=== PATIENT | male | born 1930 | race Caucasian/White ===

== ENCOUNTER 2017-04-26 00:44 | Inpatient (IN) | payer MEDICARE, BC ==
[~2017-04-26] VITALS: Ht 182.9 cm; Wt 95.3 kg
[~2017-04-26 00:44] MED LIST: ASPIR 8181 MG PO; BACTRIM DS TAB1 EACH PO; CENTRUM SILVER1 EAC4 PO; FLEXERIL PO; HYDROCODONE-AP1 EAC6 PO; IBUPROFEN 800800 M1 PO; KEFLEX500 MG PO; LEVOTHYROXIN0.125 M1 PO; LOPRESSOR25 PO; LOVASTATIN 20 M20 MG PO; NATURAL LUTEIN20 MG PO; OS-CAL 500+D31 EACH PO; VITAMINC500 PO; ZINC CHELATE50 MG PO
[2017-04-26 01:01] VITALS: BP 131/89
[2017-04-26 01:27] LABS: ABSOLUTE EOSINOPHILS 0.1 thou/uL (0.0-0.7); ABSOLUTE LYMPHOCYTES 1.3 thou/uL (0.8-5.3); ABSOLUTE MONOCYTES 0.8 thou/uL (0.0-1.2); ABSOLUTE NEUTROPHILS 7.7 thou/uL (1.6-8.1); BASOPHILS 0.4 %; EOSINOPHILS 0.5 %; HEMATOCRIT 38.2 % (42.0-52.0); HEMOGLOBIN 12.8 gm/dL (14.0-18.0); MCH 30.2 pg (26.0-34.0); MCHC 33.6 g/dL (28.0-37.0); MCV 89.8 fL (80.0-100.0); MONOCYTES 8.2 %; MPV 6.9 fl. (7.2-11.1); NUCLEATED RBCS 0 /100WBC; PLATELET COUNT* 200 thou/uL (150-400); POLYS 77.9 %; RBC 4.26 mil/uL (4.50-6.00); RDW-CV 14.1 % (10.5-14.5); WBC 9.9 thou/uL (4.0-11.0)
[2017-04-26 01:31] LABS: ANION GAP 6 mmol/L (7-16); BUN 24 mg/dL (7-18); CALCIUM 8.4 mg/dL (8.5-10.1); CHLORIDE 100 mmol/L (98-107); CO2 30 mmol/L (21-32); CREATININE 1.3 mg/dL (0.6-1.3); GLUCOSE 125 mg/dL (70-99); POTASSIUM 4.2 mmol/L (3.5-5.1); SODIUM 136 mmol/L (136-145)
[2017-04-26 01:38] LABS: ALBUMIN 3.3 g/dL (3.4-5.0); ALKALINE PHOSPHATASE 91 U/L (46-116); LIPASE 404 U/L (73-393); SGOT 625 U/L (15-37); SGPT 402 U/L (30-65); TOTAL PROTEIN 6.7 g/dL (6.4-8.2); TROPONIN-I LEVEL <0.06 ng/mL (<0.06)
[2017-04-26 07:38] VITALS: BP 139/56
[2017-04-26 08:35] VITALS: BP 151/69
--- NOTE | 2017-04-26 10:48 | EKG ---
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 : 1930 Requested By: Layo Senior Order Number: [id number] MD: Adrian Sahu Measurements Intervals [place] Rate: 65 P: 41 FL: 215 QRS: 5 QRSD: 119 T: 74 QT: 437 QTc: 455 Interpretive Statements Sinus rhythm Borderline prolonged FL interval nonspecific intraventricular conduction defect Compared to ECG 08/15/2015 17:11:31 no change Electronically Signed On 04-26-2017 10:48:00 MANAGER SUPPORT by Adrian Sahu [email or web address] <ELECTRONICALLY SIGNED> By: Adrian Sahu MD, [facility] 04/26/17 1048 9 9 Adrian Sahu MD, [facility] /EPI
[2017-04-26 12:29] LABS: DIRECT BILIRUBIN 1.2 mg/dL (<0.1-0.3)
[2017-04-26 16:30] VITALS: BP 147/72
[2017-04-26 22:00] VITALS: BP 127/67
[2017-04-27 04:53] LABS: ALBUMIN 2.7 g/dL (3.4-5.0); CALCIUM 7.8 mg/dL (8.5-10.1); CREATININE 1.3 mg/dL (0.6-1.3); MAGNESIUM 2.4 mg/dL (1.8-2.4); POTASSIUM 3.9 mmol/L (3.5-5.1); TOTAL BILIRUBIN 4.8 mg/dL (<0.1-1.0); TOTAL PROTEIN 5.9 g/dL (6.4-8.2)
[2017-04-27 04:55] LABS: HEMATOCRIT 35.9 % (42.0-52.0); HEMOGLOBIN 11.8 gm/dL (14.0-18.0); MCH 29.9 pg (26.0-34.0); MCV 90.6 fL (80.0-100.0); MPV 7.7 fl. (7.2-11.1); RBC 3.97 mil/uL (4.50-6.00); RDW-CV 14.2 % (10.5-14.5); WBC 11.2 thou/uL (4.0-11.0)
[2017-04-27 08:00] VITALS: BP 147/55
[2017-04-27 16:08] VITALS: BP 131/57
[2017-04-27 19:43] VITALS: BP 163/71
[2017-04-27 23:57] VITALS: BP 137/59
[2017-04-28 04:20] LABS: ABSOLUTE EOSINOPHILS 0.3 thou/uL (0.0-0.7); ABSOLUTE LYMPHOCYTES 1.1 thou/uL (0.8-5.3); ABSOLUTE MONOCYTES 0.7 thou/uL (0.0-1.2); ABSOLUTE NEUTROPHILS 4.8 thou/uL (1.6-8.1); BASOPHILS 0.6 %; EOSINOPHILS 3.9 %; HEMATOCRIT 34.5 % (42.0-52.0); HEMOGLOBIN 11.5 gm/dL (14.0-18.0); LYMPHOCYTES 15.4 %; MCH 30.4 pg (26.0-34.0); MCHC 33.3 g/dL (28.0-37.0); MCV 91.3 fL (80.0-100.0); MONOCYTES 10.3 %; MPV 7.3 fl. (7.2-11.1); NUCLEATED RBCS 0 /100WBC; PLATELET COUNT* 157 thou/uL (150-400); POLYS 69.8 %; RBC 3.78 mil/uL (4.50-6.00); RDW-CV 14.5 % (10.5-14.5); WBC 6.9 thou/uL (4.0-11.0)
[2017-04-28 04:34] LABS: ALBUMIN 2.6 g/dL (3.4-5.0); CALCIUM 7.8 mg/dL (8.5-10.1); CREATININE 1.1 mg/dL (0.6-1.3); POTASSIUM 3.8 mmol/L (3.5-5.1); TOTAL BILIRUBIN 1.5 mg/dL (<0.1-1.0); TOTAL PROTEIN 5.8 g/dL (6.4-8.2)
[2017-04-28 08:00] VITALS: BP 169/62
[2017-04-28 08:10] VITALS: BP 169/92
[2017-04-28 09:23] VITALS: BP 137/59
[2017-04-28 13:50] VITALS: BP 168/74
--- NOTE | 2017-04-28 14:54 | OP ---
[facility] [address] [place] [address] OPERATIVE REPORT Name: FADIACHAYDIGNA Liane Room: [address] IN .R.#: [id number] Admission: 04/26/17 Attend Phys: Kevin Benton Discharge: Date of : 32 Report #: [id number] THIS REPORT FOR: //name// CC: SUDARSHAN Powell DICTATED BY: Tonia Boudreaux DO DATE OF SERVICE: 04/28/2017 PREOPERATIVE DIAGNOSIS: Acute cholecystitis with cholelithiasis. POSTOPERATIVE DIAGNOSIS: Acute cholecystitis with cholelithiasis. SURGEON: Tonia Boudreaux, PGY-5. SUPERVISING SURGEON: Tiago Salguero DO. LEAFLET OR NEWSPAPER DELIVERER: Renny , MS3. PROCEDURE: Laparoscopic cholecystectomy with intraoperative cholangiogram. ANESTHESIA: General endotracheal. ESTIMATED BLOOD LOSS: 30 mL. SPECIMENS: Gallbladder. COMPLICATIONS: None. DISPOSITION: PACU to floor. OPERATIVE DETAILS: After obtaining proper informed consent, the patient was brought to the operating room and laid supine on the operating table. He was sedated and intubated under the benefit of general anesthesia. He had been receiving antibiotics on the floor. Abdomen was then prepped and draped in the usual sterile fashion and timeout was performed. Supraumbilical incision was made and dissection of subcutaneous tissue was carried out to the level of the fascia. A nicking incision was made in the fascia with the use of cautery and this was grasped and elevated with 2 Saw clamps. The fascial incision was extended slightly and peritoneum was entered bluntly with the use of a hemostat. A finger was placed in the abdomen and peritoneum was swept and found to be free of adhesions. Two utstvr-we-ehzgg 0 Vicryl sutures were then placed in the fascia as retention sutures. A Yareli trocar was placed in the abdomen and abdomen was insufflated. An 11 mm trocar was placed in the [place] [address] OPERATIVE REPORT Name: DIGNA TOVAR Room: [address] IN [facility].#: [id number] Admission: 04/26/17 Attend Phys: Kevin Benton Discharge: Date of : 32 Report #: [id number] under direct visualization followed by two 5 mm trocars in the right lateral abdomen. Gallbladder was then grasped and elevated cephalad over the liver. Charity pouch was grasped and peritoneum overlying Charity pouch was incised with the use of cautery. Gentle dissection was then carried out to dissect free the cystic duct and cystic artery. A 14-gauge Angiocath was then placed through the abdominal wall above the gallbladder. Endoclip was placed distally on the cystic duct and a nicking incision was made with endoscopic scissors. TauT catheter was then advanced into the duct and secured with a clip. This flushed easily and the patient was then placed back fully supine and C-arm was brought in. Cholangiogram was performed with no evidence of stone in the common bile duct. C-arm was then brought out. The patient again was placed head up and rolled slightly to the left. The securing clip was removed and TauT catheter was removed. Three clips were then placed proximally on the cystic duct and 2 proximally on the cystic artery and one distally on the cystic artery. Cystic duct and cystic artery were then ligated with endoscopic scissors. Gallbladder was dissected free of the liver bed with the use of cautery. There were some very small posterior vessels, which were controlled with clips. Once the gallbladder was completely dissected free, it was placed in an EndoCatch bag. Gallbladder fossa was irrigated and suctioned free with the use of a suction grizzlyman. Hemostasis of the liver bed was assured with cautery and Surgicel. Irrigation fluid was completely suctioned free from Morison pouch. Trocars were removed under direct visualization with no evidence of bleeding. Gallbladder was brought out through the supraumbilical incision. There were multiple large stones that were sent to Pathology for further evaluation. Two additional pmtaam-ec-uawct 0 Vicryl sutures were placed in the fascia of the supraumbilical incision with good approximation. Local infiltration of 0.5% Marcaine was injected in the fascia as well as around all incisions, totalling 30 mL. Skin was closed with 4-0 Monocryl, followed by Mastisol, Steri-Strips, sterile Tegaderm dressings and gauze pressure dressing. All counts were correct at the end of the case. Drapes were removed and the patient was awoken and extubated and brought to PACU in good condition for further recovery. Dr. Tiago Salguero was present and scrubbed for the entirety of the procedure. <ELECTRONICALLY SIGNED> By: Tiago Salguero DO 04/28/17 1454 1218 [id number] Salguero DO /nt
[2017-04-28 21:05] VITALS: BP 203/88
[2017-04-29] VITALS (7 sets, daily range): BP systolic 150–179; BP diastolic 58–83
[2017-04-29 04:03] LABS: HEMATOCRIT 35.4 % (42.0-52.0); MCH 30.6 pg (26.0-34.0); MCV 90.1 fL (80.0-100.0); MPV 7.4 fl. (7.2-11.1); RBC 3.93 mil/uL (4.50-6.00); WBC 10.9 thou/uL (4.0-11.0)
[2017-04-29 04:21] LABS: ALBUMIN 2.5 g/dL (3.4-5.0); CALCIUM 7.9 mg/dL (8.5-10.1); MAGNESIUM 2.1 mg/dL (1.8-2.4); POTASSIUM 3.9 mmol/L (3.5-5.1); TOTAL BILIRUBIN 1.1 mg/dL (<0.1-1.0); TOTAL PROTEIN 5.9 g/dL (6.4-8.2)
[2017-04-29] MEDS ORDERED: COLACE100 MG PO (07:45)
[2017-04-29] MEDS ORDERED: SYNTHROID125 MCG PO (14:20)
--- NOTE | 2017-04-29 17:17 | CON ---
[address] [address] CONSULTATION Name: DIGNA TOVAR Room: [address] IN .R.#: [id number] Admission: 04/26/17 Attend Phys: Kevin Benton Discharge: 04/29/17 Date of : 32 Report #: [id number] THIS REPORT FOR: //name// CC: SUDARSHAN Powell DATE OF SERVICE: 04/26/2017 HISTORY OF PRESENT ILLNESS: The patient is an 87-year-old single white male who I was asked to see in the hospital today because of his history of coronary artery disease. Unfortunately, no old records are available. The patient has never been admitted here to [place]. He states that he presented in 2011, with shortness of breath. He was found to have evidence of aortic stenosis. In 2011, he underwent 2-vessel bypass surgery using left saphenous vein graft and aortic valve replacement using a tissue valve at [facility] in [place], [place]. He has apparently done well since his surgery. However, he did develop chronic swelling of the left leg following stripping of the left saphenous vein. He does see a lab courier every spring. He does exercise on a stationary bicycle for 30 minutes a day. He has a home both in [place], [place] and in [place]. He states that he was doing well until yesterday afternoon, he developed a discomfort in his epigastric area. He denied any vomiting, radiation of the pain, shortness of breath, or diaphoresis. Denied the pain radiating down his arms. He has had no recent fever or cough. Denied trauma to the area. He has had no diarrhea. He finally brought himself by car to the emergency room last night here at [place]. He underwent an evaluation that included CT scan of the abdomen and pelvis. This revealed distended gallbladder, small fluid. He was felt to be having cholecystitis. He was admitted to a monitored bed. I was asked to see him for possible preop evaluation. He denies any recent chest pain. He does get short of breath if he over exerts himself. He has had no palpitations or syncope. PAST MEDICAL HISTORY: Significant for previous hip surgery, Cataract extraction. 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 He has a history of hyperlipidemia, but no history of hypertension or diabetes. MEDICATIONS: Consists of Synthroid, metoprolol, lovastatin, and 81 mg of aspirin a day. ALLERGIES: He has no known drug allergies. FAMILY HISTORY: His mother had an irregular heartbeat. SOCIAL HISTORY: The patient is single, he has never been , he has no children. He is retired from the government. As mentioned, he has a house both in [place] and here in [place]. The patient does not drive, so he requires rides from a friend whenever necessary. He quit smoking years ago[place] [address] CONSULTATION Name: DIGNA TOVAR [address]: [address] [id number] Admission: 04/26/17 Attend Phys: Kevin Benton Discharge: 04/29/17 Date of : 32 Report #: [id number]. REVIEW OF SYSTEMS: He has had no history of stroke, asthma, peptic ulcer disease, liver disease, kidney disease, or psychiatric illness. He does wear glasses. No chronic skin condition. PHYSICAL EXAMINATION: GENERAL: Revealed an elderly male, lying in bed, he appeared in no acute distress. VITAL SIGNS: He had a blood pressure of 140/60, pulse 60, and he is afebrile. HEENT: He is anicteric. Conjunctivae are pink. Mucous membranes are moist. NECK: Veins nondistended. No carotid bruits. Neck was supple. CHEST: Clear to auscultation. HEART: Regular rate and rhythm, grade 3 late peaking systolic ejection murmur along the left sternal border. ABDOMEN: Soft. EXTREMITIES: Had 1+ edema in left lower extremity. Dorsalis pedis pulse 1+ bilaterally. SKIN: Cool and dry. NEUROLOGIC: Nonfocal. His ECG showed a sinus rhythm with nonspecific intraventricular conduction defect. His lab work done in the emergency room, he had a sodium of 136, creatinine 1.3, glucose 125, SGOT 625, lipase 404, bilirubin of 2, SGPT 402. Troponin 0.06. White blood cell count 9.9, hemoglobin 12.8. IMPRESSION AND RECOMMENDATIONS: 1. Coronary artery disease. Previous bypass surgery. No recent angina. I would continue aspirin 81 mg a day. 2. Status post aortic valve replacement using tissue valve. Valve appears to be functioning normally. I will attempt to obtain the records from his lab courier in [place], [place]. 3. Hyperlipidemia. The patient is on a statin drug. 4. Previous removal of a melanoma. 5. Elevated liver function studies. 6. Epigastric pain. Possible cholecystitis. Await surgical consultation. If required, the patient appears to have no cardiac contraindication to surgery. I believe his risk for cardiac complications with the surgery is low at this time. <ELECTRONICALLY SIGNED> By: Adrian Sahu MD, [facility] 04/29/17 1717 0926 1538Dales Sahu MD, SHANTANU /nt
--- NOTE | 2017-04-30 12:29 | S ---
[address] [address] SURGICAL PATH RPT PROCEDURE Name: DIGNA TOVAR Room: [address] IN [facility].#: [id number] Admission: 04/26/17 Date of : 32 Discharge: 04/29/17 Report #: [id number] Path Case #: [id number] PATHOLOGY REPORT COLLECTION DATE: 04/28/2017 RECEIVED DATE: 04/29/2017 SUBMITTING PHYS: Dr. Tiago Salguero OTHER PHYS: Dr. 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 (JENNIFER:r; 04/30/2017) PATHOLOGIST: Pieter Jacob M.D. REPORT ELECTRONICALLY SIGNED BY: Pieter Jacob M.D. DATE/TIME: 04/30/2017 12:28 * * * * * * * * * * * * GROSS PATHOLOGY: Received in formalin labeled "Digna Tovar, gallbladder with contents," is a 9.1 x 3.3 x 1.8 cm, previously opened gallbladder with cyr, smooth, and dusky serosal surfaces. The gallbladder reveals cyr-brown, velvety, and focally denuded mucosa and an average wall thickness of 0.3 cm. Multiple, smooth and multifaceted calculi are present. Two possible lymph nodes are identified adjacent the cystic duct. [employer] sections from the body and fundus are submitted along with the proximal margin in cassettes A1-A2. (SDY; 04/29/2017) CLINICAL HISTORY: Cholecystitis INITIAL CPT CODE(S): A; 60377 Professional services performed by [facility] at [facility], [facility] [address], [place] [address]. Technical services performed by [facility] at [address] [place] [address], [facility] [address] [address]. [place] [address] SURGICAL PATH RPT PROCEDURE Name: DIGNA TOVAR Room: [address] IN ..#: [id number] Admission: 04/26/17 Date of : 32 Discharge: 04/29/17 Report #: [id number] Path Case #: [id number] [facility] [address] [place] [id number] PHONE: [phone] DIRECTOR: Vazquez Carranza M.D. * * * END OF REPORT * * *
--- NOTE | 2017-05-08 17:47 | CON ---
[facility] [address] [place] [address] CONSULTATION Name: FADIACHAYDIGNA Liane Room: [address] IN [facility]#: [id number] Admission: 04/26/17 Attend Phys: Kevin Benton Discharge: 04/29/17 Date of : 32 Report #: [id number] THIS REPORT FOR: //name// CC: SUDARSHAN Powell DICTATED BY: Nae PERRYP DATE OF SERVICE: 04/26/2017 PRIMARY CARE PHYSICIAN: None noted. The patient cannot remember his name. Please note at the time of this dictation, the patient was seen and physically examined by myself. REASON FOR CONSULTATION: Epigastric pain and elevated LFTs. HISTORY OF PRESENT ILLNESS: This is an 87-year-old male presenting to the Emergency Room after having epigastric pain which started yesterday late in the afternoon. He states he felt a little nauseous, but no vomiting and he did not really associate it with eating. The patient states that his bowels move daily, soft and formed with no issues of any bright red blood or melena. He has had a history of having colonoscopies done at in [place]. Otherwise, the patient is a fairly poor historian at this time. ALLERGIES: No known drug allergies. MEDICATIONS: From home, see MAR. PAST MEDICAL HISTORY: Prostate cancer in 2004. He has got a history of heart disease. PAST SURGICAL HISTORY: CABG and total hip replacement. FAMILY HISTORY: Negative for any GI or female cancers. SOCIAL HISTORY: Alcohol socially on occasion. Denies any tobacco or illegal drug use. REVIEW OF SYSTEMS: Twelve-point review of systems is essentially negative except what is mentioned in the HPI. PHYSICAL EXAMINATION: VITAL SIGNS: Temperature 36.8, pulse 64, respirations 16, blood pressure 151/69. HEART: [place] [address] CONSULTATION Name: DIGNA TOVAR Liane Room: [address]#: [id number] Admission: 04/26/17 Attend Phys: Kevin Benton Discharge: 04/29/17 Date of : 32 Report #: [id number] LUNGS: Clear. ABDOMEN: Soft, positive bowel sounds in all 4 quadrants with tenderness noted in the epigastric area. DIAGNOSTIC STUDIES: CT showed gallbladder distention. Ultrasound of the abdomen showed his CBD to be 5.3-6.2 mm, fatty liver, showed gallbladder wall thickening, positive for gallstones. LABORATORY DATA: Hemoglobin is 12.8, hematocrit 38.2, white count is 9.9, platelets 200. Sodium 136, potassium 4.2, chloride 100, CO2 of 30, BUN is 24, creatinine is 1.3, GFR is 52 and glucose is 125, total bilirubin is 2, alkaline phosphatase 91, ALT 402, AST is 625. Lipase is 404. IMPRESSION: 1. Elevated LFTs. 2. Abdominal pain, epigastric. 3. Cholelithiasis noted. PLAN: 1. MRCP today. 2. Depending on the above results, we will make further recommendations at that time. 3. CMP in the a.m. Thank you for allowing us to participate in this patient's care. Please do not hesitate to call with any questions in regard to this consult. <ELECTRONICALLY SIGNED> By: Jonel Gtz MD 05/08/17 1747 1335 [id number] Gtz MD /nt
--- NOTE | 2017-05-08 17:47 | CON ---
[address] [address] CONSULTATION Name: FADIACHAYDIGNA Liane Room: [address] IN M.R.#: [id number] Admission: 04/26/17 Attend Phys: Kevin Benton Discharge: 04/29/17 Date of : 32 Report #: [id number] THIS REPORT FOR: //name// CC: SUDARSHAN Powell DATE OF SERVICE: 04/26/2017 ADDENDUM: CONSULT #[id number]. The patient with an epigastric pain who has elevated liver enzymes and bilirubin of 2. The ultrasound and CT suggestive of thickening of the gallbladder wall and mild pericholecystic fluid noted in CT. There are also several stones in the gallbladder. The intra and extrahepatic ducts appeared normal in size. We will order MRCP. If this is negative, the patient will be evaluated by Surgery for possible laparoscopic cholecystectomy. <ELECTRONICALLY SIGNED> By: Jonel Gtz MD 05/08/17 1747 1417 0147Jonel Gtz MD /nt
== END 2017-04-29 15:00 | disposition home or self-care (01) | DRG 418 ==
LOC: M.ERS 00:44 → M.TBA-ER 03:34 → M.ORTHSURG 08:28
PROVIDERS: Emergency Medicine Emergency Medical Services; Internal Medicine; Surgery; ADMIT Internal Medicine
PROC: 0FT44ZZ Resection of Gallbladder, Percutaneous Endoscopic Approach (ICD-10-PCS; principal; 2017-04-28)
PROC: BF121ZZ Fluoroscopy of Gallbladder using Low Osmolar Contrast (ICD-10-PCS; principal; 2017-04-28)
DX: K80.01 Calculus of gallbladder with acute cholecystitis with obstruction (principal); J98.11 Atelectasis; E03.9 Hypothyroidism, unspecified; R74.0 Nonspecific elevation of levels of transaminase and lactic acid dehydrogenase [LDH]; N18.2 Chronic kidney disease, stage 2 (mild); I25.10 Atherosclerotic heart disease of native coronary artery without angina pectoris; E78.5 Hyperlipidemia, unspecified; Z96.642 Presence of left artificial hip joint; Z95.2 Presence of prosthetic heart valve; Z98.49 Cataract extraction status, unspecified eye; Z82.49 Family history of ischemic heart disease and other diseases of the circulatory system; Z87.891 Personal history of nicotine dependence; Z85.46 Personal history of malignant neoplasm of prostate; Z95.1 Presence of aortocoronary bypass graft; Z79.899 Other long term (current) drug therapy; Z79.82 Long term (current) use of aspirin

== ENCOUNTER 2018-06-06 09:39 | Inpatient (IN) | payer MEDICARE, BC, OTHER ==
[~2018-06-06] VITALS: Ht 177.8 cm; Wt 106.6 kg
[~2018-06-06 09:39] MED LIST changes: +COLACE100 MG PO; +SYNTHROID150 MCG PO
[2018-06-06 09:42] VITALS: BP 167/74
[2018-06-06 10:27] LABS: ABSOLUTE EOSINOPHILS 0.1 thou/uL (0.0-0.7); ABSOLUTE LYMPHOCYTES 1.4 thou/uL (0.8-5.3); ABSOLUTE MONOCYTES 0.5 thou/uL (0.0-1.2); ABSOLUTE NEUTROPHILS 4.1 thou/uL (1.6-8.1); BASOPHILS 0.8 %; EOSINOPHILS 1.6 %; HEMATOCRIT 38.5 % (42.0-52.0); LYMPHOCYTES 23.4 %; MCH 30.5 pg (26.0-34.0); MCHC 33.8 g/dL (28.0-37.0); MCV 90.5 fL (80.0-100.0); MONOCYTES 8.5 %; MPV 7.2 fl. (7.2-11.1); NUCLEATED RBCS 0 /100WBC; PLATELET COUNT* 192 thou/uL (150-400); POLYS 65.7 %; RBC 4.26 mil/uL (4.50-6.00); RDW-CV 13.6 % (10.5-14.5); WBC 6.2 thou/uL (4.0-11.0)
[2018-06-06 10:39] LABS: APTT 24.7 Seconds (25.0-31.3); PROTIME 10.4 Seconds (9.20-11.50)
[2018-06-06 10:43] LABS: CREATININE 1.2 mg/dL (0.6-1.3); POTASSIUM 4.7 mmol/L (3.5-5.1)
[2018-06-06 10:48] LABS: ALBUMIN 3.4 g/dL (3.4-5.0); TOTAL BILIRUBIN 0.4 mg/dL (<0.1-1.0); TOTAL PROTEIN 6.8 g/dL (6.4-8.2)
[2018-06-06 11:33] LABS: URINE BILIRUBIN NEGATIVE (Negative); URINE BLOOD NEGATIVE (Negative); URINE CLARITY CLEAR; URINE COLOR YELLOW; URINE GLUCOSE-RANDOM NEGATIVE (Negative); URINE KETONES NEGATIVE (Negative); URINE LEUKOCYTES-REFLEX NEGATIVE (Negative); URINE NITRITE-REFLEX NEGATIVE (Negative); URINE PROTEIN NEGATIVE (Negative); URINE UROBILINOGEN 0.2 E.U./dl (0.2-1.0)
[2018-06-06 14:06] VITALS: BP 160/69
[2018-06-06 16:00] VITALS: BP 142/64
--- NOTE | 2018-06-06 16:30 | NUR ---
ASSUMED CARE OF PT AT THIS TIME. AGREE WITH PREVIOUS ASSESSMENT. WILL CONTINUE TO MONITOR.
[2018-06-06 20:00] VITALS: BP 78/60
[2018-06-07 04:12] LABS: ABSOLUTE BASOPHILS 0.1 thou/uL (0.0-0.2); ABSOLUTE EOSINOPHILS 0.2 thou/uL (0.0-0.7); ABSOLUTE LYMPHOCYTES 2.2 thou/uL (0.8-5.3); ABSOLUTE MONOCYTES 0.7 thou/uL (0.0-1.2); ABSOLUTE NEUTROPHILS 4.6 thou/uL (1.6-8.1); BASOPHILS 0.8 %; EOSINOPHILS 3.2 %; HEMATOCRIT 38.6 % (42.0-52.0); HEMOGLOBIN 12.8 gm/dL (14.0-18.0); LYMPHOCYTES 28.1 %; MCHC 33.2 g/dL (28.0-37.0); MCV 90.3 fL (80.0-100.0); MONOCYTES 9.4 %; MPV 7.6 fl. (7.2-11.1); NUCLEATED RBCS 0 /100WBC; PLATELET COUNT* 201 thou/uL (150-400); POLYS 58.5 %; RBC 4.27 mil/uL (4.50-6.00); RDW-CV 13.6 % (10.5-14.5); WBC 7.8 thou/uL (4.0-11.0)
--- NOTE | 2018-06-07 06:07 | NUR ---
assumed patient care at 1900. patient alert and oriented times four. No complaints of pain or discomfort. Education given oral and maxillofacial surgeon light and IV pump management with going to the restroom. Able to ambulate with a steady gait with the assisst of a cane. Iv patent. Hourly rounding and knitter operator completed as documented.
[2018-06-07 07:35] VITALS: BP 151/59
[2018-06-07 15:52] VITALS: BP 147/62
--- NOTE | 2018-06-07 16:49 | NUR ---
PATIENT A&OX4, ROOM AIR, RIGHT AC SALINE LOCK WITH IV ABX. UP AD XIAO, STEADY GIAT. NO C/O PIAN/N/V. BM TODAY. NO OTHER CONCERNS AT THIS TIME. APPROPRIATE AND COOPORATIVE WITH CARE. WILL CONTINUE TO MONITOR.
[2018-06-07 20:00] VITALS: BP 120/60
--- NOTE | 2018-06-08 06:27 | NUR ---
PATIENT SLEPT PART OF THE NIGHT. NEW IV WAS STARTED CHARTED AND REMAINS SALINE LOCKED. IV ANTIBIOTICS WERE GIVEN ORDERED. REDNESS AND SWELLING TO LEFT LOWER LEG CONTINUES TO IMPROVE. WILL CONTINUE TO MONITOR.
[2018-06-08 07:35] VITALS: BP 141/66
[2018-06-08] MEDS ORDERED: AUGMENTIN 875-1 EACH PO (09:06)
[2018-06-08 11:31] VITALS: BP 141/66
--- NOTE | 2018-06-08 14:04 | NUR ---
PATIENT A&OX4, ROOM AIR, IV LEFT WRIST, SALINE LOCK. IV DISCONTINUED, CATHETER FULLY INTACT. UP AD XIAO, WITH CANE, STEADY GIAT. NO C/O PIAN/N/V. SWELLING AND REDNESS TO LEFT LOWER EXTREMITY. D/C PHOTOS TAKEN. REVIEWED DISCHARGE PAPERWORK WITH PATEINT, VERBALIZES UNDERSTANDING. NO FURTHER QUESTIONS OR CONCERNS AT THIS TIME. APPROPRIATE AND COOPORATIVE WITH CARE. PATIENT LEFT AT 1400 VIA W/C WITH FAMILY FRIEND AND ALL BELONGINGS TAKEN WITH PATIENT.
== END 2018-06-08 14:00 | disposition home or self-care (01) | DRG 603 ==
LOC: M.ERS 09:39 → M.3W 12:31 → M.TBA-ER 12:31 → M.3W 14:16
PROVIDERS: Emergency Medicine; ADMIT Internal Medicine
DX: L03.116 Cellulitis of left lower limb (principal); E03.9 Hypothyroidism, unspecified; Z96.642 Presence of left artificial hip joint; K59.00 Constipation, unspecified; Z85.46 Personal history of malignant neoplasm of prostate; Z95.2 Presence of prosthetic heart valve; Z87.891 Personal history of nicotine dependence; Z79.82 Long term (current) use of aspirin; Z79.899 Other long term (current) drug therapy

== ENCOUNTER 2018-12-09 07:52 | Emergency (ER) | payer MEDICARE, BC, OTHER ==
[~2018-12-09] VITALS: Ht 172.7 cm; Wt 102.1 kg
[~2018-12-09 07:52] MED LIST changes: +AUGMENTIN 875-1 EACH PO
[2018-12-09 09:24] VITALS: BP 139/62
== END 2018-12-09 09:24 | disposition home or self-care (01) ==
LOC: M.ERS 07:52
DX: S80.02XA Contusion of left knee, initial encounter (principal); E03.9 Hypothyroidism, unspecified; Z91.048 Other nonmedicinal substance allergy status; Z85.46 Personal history of malignant neoplasm of prostate; Z96.642 Presence of left artificial hip joint; Z90.49 Acquired absence of other specified parts of digestive tract; W01.0XXA Fall on same level from slipping, tripping and stumbling without subsequent striking against object, initial encounter; Y92.89 Other specified places as the place of occurrence of the external cause; Y93.89 Activity, other specified; Y99.8 Other external cause status

== ENCOUNTER 2019-02-09 10:31 | Emergency (ER) | payer MEDICARE, BC, OTHER ==
[~2019-02-09] VITALS: Ht 182.9 cm; Wt 104.3 kg
[2019-02-09 12:43] VITALS: BP 120/63
[2019-02-09] MEDS ORDERED: KEFLEX500 M1 PO (13:01)
== END 2019-02-09 12:57 | disposition home or self-care (01) ==
LOC: M.ERS 10:31
DX: R60.0 Localized edema (principal); E03.9 Hypothyroidism, unspecified; Z85.46 Personal history of malignant neoplasm of prostate; Z96.642 Presence of left artificial hip joint; Z90.49 Acquired absence of other specified parts of digestive tract; Z98.890 Other specified postprocedural states

== ENCOUNTER 2020-02-18 00:46 | Emergency (ER) | payer MEDICARE, BC ==
[~2020-02-18] VITALS: Ht 177.8 cm; Wt 101.6 kg
[~2020-02-18 00:46] MED LIST changes: +KEFLEX500 M1 PO
[2020-02-18] MEDS ORDERED: KEFLEX500 M1 PO (01:30)
[2020-02-18 02:07] VITALS: BP 132/79
== END 2020-02-18 02:07 | disposition home or self-care (01) ==
LOC: M.ERS 00:46
DX: L03.116 Cellulitis of left lower limb (principal); R60.0 Localized edema; E03.9 Hypothyroidism, unspecified; Z96.642 Presence of left artificial hip joint; Z85.46 Personal history of malignant neoplasm of prostate; W01.0XXA Fall on same level from slipping, tripping and stumbling without subsequent striking against object, initial encounter; Y93.89 Activity, other specified; Y92.89 Other specified places as the place of occurrence of the external cause; Y99.8 Other external cause status

== ENCOUNTER 2020-08-26 06:54 | Inpatient (IN) | payer MEDICARE, BC ==
[~2020-08-26] VITALS: Ht 177.8 cm; Wt 104.7 kg
--- NOTE | ~2020-08-26 | CON ---
[address] [address] CONSULTATION Name: DIGNA TOVAR Room: [address] IN .R.#: [id number] Admission: 08/26/20 Attend Phys: Kevin Thompson Discharge: Date of : 32 Report #: [id number] THIS REPORT FOR: cc: Carolyn Wright Linda J. DO Khosla, Parveen K. MD ~ DATE OF SERVICE: 08/26/2020 HISTORY OF PRESENT ILLNESS: This is an 89-year-old male patient who was evaluated by me for ataxia. I talked to Emergency Room physician multiple times. This patient says that he was having some trouble with the left ear and he started having ataxia. He had similar problem before. He thinks that was few years ago. They attributed that to the ENT pathology. His blood pressure has been fluctuating. He has not been evaluated by PT or OT yet. REVIEW OF SYSTEMS: A 14-point review of systems was carried out. He has hip replacement, bypass surgery, aortic valve replacement, macular degeneration, hypothyroidism. That was a relevant 14-point review of system. PAST MEDICAL HISTORY: Positive for similar episode a few years ago. FAMILY HISTORY: Unremarkable. SOCIAL HISTORY: He does not drink alcohol. PHYSICAL EXAMINATION: NEUROLOGIC: Indicate he is alert. He is responsive. He can follow simple commands. His speech looks intact. His cranial nerve examination and neuromuscular examinations appear noncontributory. On my examination, he does uuybsl-xg-afsm reasonably well. I did not make him walk. There is no meningeal sign. There is no carotid bruit. CARDIORESPIRATORY: Unremarkable. VITAL SIGNS: Blood pressure is 184/77, respirations 17, pulse of 54, temperature is 97.6. LABORATORY DATA: White count is 7.2. His MRI and MRA were done and they were reviewed. They look unremarkable. PT, OT has not evaluated him. IMPRESSION: There is no evidence of cerebrovascular accident, which can explain the patient's ataxia. It can be inner ear problem, but other etiologies need to be excluded. I will await the evaluation of the physical therapy and occupational therapy. If he does have ataxia, still we may have to workup, is fine. His blood pressure also is high that needs to be controlled since he has no evidence of cerebrovascular accident and [place] [address] CONSULTATION Name: DIGNA TOVAR Room: [address] IN [facility]#: [id number] Admission: 08/26/20 Attend Phys: Kevin Thompson Discharge: Date of : 32 Report #: [id number] reasonably open. It can be controlled, but not very tightly at the moment until the carotid Doppler is done and indicates that there is no significant stenosis there either. Dr. Keene will take over the service from 5:00 p.m. today and will follow up tomorrow and day after and leave further recommendation hopefully after physical therapy and occupational therapy evaluation. By: 1550 49Kaveh River MD /nt
[~2020-08-26 06:54] MED LIST changes: -LOPRESSOR25 PO; +LOPRESSOR50 PO
[2020-08-26 06:56] VITALS: BP 157/69
[2020-08-26] MEDS ORDERED: CENTRUM SILVER1 EAC5 PO (07:03)
[2020-08-26] MEDS ORDERED: FISH OIL 1,0001 EAC9 PO (07:04)
[2020-08-26] MEDS ORDERED: LISINOPRIL5 MG PO (07:05)
[2020-08-26 07:39] LABS: ABSOLUTE BASOPHILS 0.1 thou/uL (0.0-0.2); ABSOLUTE EOSINOPHILS 0.2 thou/uL (0.0-0.7); ABSOLUTE LYMPHOCYTES 2.1 thou/uL (0.8-5.3); ABSOLUTE MONOCYTES 0.6 thou/uL (0.0-1.2); ABSOLUTE NEUTROPHILS 4.3 thou/uL (1.6-8.1); BASOPHILS 0.7 %; EOSINOPHILS 2.9 %; HEMATOCRIT 38.8 % (42.0-52.0); LYMPHOCYTES 28.6 %; MCH 29.9 pg (26.0-34.0); MCHC 33.5 g/dL (28.0-37.0); MCV 89.3 fL (80.0-100.0); MONOCYTES 8.2 %; MPV 7.2 fl. (7.2-11.1); NUCLEATED RBCS 0 /100WBC; PLATELET COUNT* 209 thou/uL (150-400); POLYS 59.6 %; RBC 4.34 mil/uL (4.50-6.00); RDW-CV 13.8 % (10.5-14.5); WBC 7.2 thou/uL (4.0-11.0)
[2020-08-26 07:44] LABS: CALCIUM 8.6 mg/dL (8.5-10.1); CREATININE 1.3 mg/dL (0.6-1.3); POTASSIUM 4.3 mmol/L (3.5-5.1)
[2020-08-26 07:45] LABS: URINE BILIRUBIN NEGATIVE (Negative); URINE BLOOD NEGATIVE (Negative); URINE CLARITY CLEAR; URINE COLOR YELLOW; URINE GLUCOSE-RANDOM NEGATIVE (Negative); URINE KETONES NEGATIVE (Negative); URINE LEUKOCYTES-REFLEX NEGATIVE (Negative); URINE NITRITE-REFLEX NEGATIVE (Negative); URINE PROTEIN NEGATIVE (Negative); URINE UROBILINOGEN 0.2 E.U./dl (0.2-1.0)
[2020-08-26 07:54] LABS: APTT 25.8 Seconds (25.0-31.3); PROTIME 10.6 Seconds (9.20-11.50)
[2020-08-26 07:55] LABS: ALBUMIN 3.4 g/dL (3.4-5.0); TOTAL BILIRUBIN 0.4 mg/dL (<0.1-1.0); TOTAL PROTEIN 7.1 g/dL (6.4-8.2)
--- NOTE | 2020-08-26 10:02 | EKG ---
[place] [address] ELECTROCARDIOGRAM REPORT Name: DIGNA TOVAR Room: [place] [address] ADM IN [facility]#: [id number] Admission: 08/26/20 Attend Phys: Charan Graham Discharge: Date of : 34 Date of Service: 08/26/20 0659 Report #: [id number] THIS REPORT FOR: //name// [facility] ED Test Date: 2020-08-26 Test Time: 06:59:20 Pat Name: DIGNA TOVAR Department: Room: [facility] Gender: M Supervisor Wet End: JOEL : 1930 Requested By: Layo Senior Order Number: [id number] MD: Adrian Sahu Measurements Intervals [place] Rate: 56 P: 26 SD: 225 QRS: -102 QRSD: 138 T: 42 QT: 436 QTc: 421 Interpretive Statements Sinus arrhythmia Prolonged SD interval RBBB and LAFB Compared to ECG 04/26/2017 06:30:45 Left anterior fascicular block now present Right bundle-branch block now present Sinus rhythm no longer present Electronically Signed On 08-26-2020 10:02:42 CDT by Adrian Sahu [email or web address] <ELECTRONICALLY SIGNED> By: Adrian Sahu MD, FACC 08/26/20 1002 0659 0659 Adrian Sahu MD, FAC /EPI
[2020-08-26 10:18] VITALS: BP 152/65
[2020-08-26 11:20] VITALS: BP 184/77
--- NOTE | 2020-08-26 11:20 | NUR ---
admit from er to rm 201 patient to rm via cart assist of 1 to bed patient denies pain oriented to rm and call light call light left in place
[2020-08-26 16:56] VITALS: BP 148/61
[2020-08-26 20:00] VITALS: BP 160/97
[2020-08-26 23:49] VITALS: BP 121/61
[2020-08-27 04:10] VITALS: BP 127/67
[2020-08-27 04:16] LABS: HEMATOCRIT 34.7 % (42.0-52.0); HEMOGLOBIN 11.8 gm/dL (14.0-18.0); MCH 30.4 pg (26.0-34.0); MCHC 33.9 g/dL (28.0-37.0); MCV 89.5 fL (80.0-100.0); MPV 7.2 fl. (7.2-11.1); RBC 3.88 mil/uL (4.50-6.00); RDW-CV 13.8 % (10.5-14.5); WBC 7.1 thou/uL (4.0-11.0)
[2020-08-27 04:36] LABS: ALBUMIN 2.9 g/dL (3.4-5.0); ALKALINE PHOSPHATASE 84 U/L (46-116); ANION GAP 8 mmol/L (7-16); BUN 24 mg/dL (7-18); CALCIUM 9.1 mg/dL (8.5-10.1); CHLORIDE 107 mmol/L (98-107); CHOLESTEROL 125 mg/dL (<200); CO2 26 mmol/L (21-32); CREATININE 1.2 mg/dL (0.6-1.3); GLUCOSE 101 mg/dL (70-99); HDL CHOLESTEROL 45 mg/dL (>40); LDL CHOLESTEROL 69 mg/dL (<100); POTASSIUM 3.9 mmol/L (3.5-5.1); SGOT 18 U/L (15-37); SGPT 17 U/L (30-65); SODIUM 141 mmol/L (136-145); TC:HDL 2.8 Ratio (Not establshd); TOTAL BILIRUBIN 0.4 mg/dL (<0.1-1.0); TOTAL PROTEIN 6.1 g/dL (6.4-8.2); TRIGLYCERIDE 58 mg/dL (<150); VLDL 12 mg/dL (<40)
[2020-08-27 04:43] LABS: SERUM ASSESSMENT CLEAR
--- NOTE | 2020-08-27 06:20 | NUR ---
ASSUMED CARE OF PT AFTER REPORT AT 1930.PT A&OX4. VSS. PHYSICAL ASSESSMENT COMPLETED AND CHARTED. PT ON RA.PT TRACING SA/SB/1ST DEG/BBB/PAC ON TELE.PT DENIES ANY PAIN. NIH CHARTED. FALL PRECAUTIONS IN PLACE. CALL LIGHT WITHIN REACH.
[2020-08-27 08:00] VITALS: BP 155/65
--- NOTE | 2020-08-27 11:33 | NUR ---
RECEIVED REPORT AROUND 0715. ASSUMED CARE. VS AND ASSESSMENT CHARTED. IV INTACT. HEART MONITOR ATTACHED AT SR WITH 1ST DEG AND BBB. PT UP WITH ASSIST X1. PT SITTING UP IN CHAIR NOW. MEDS GIVEN PER JUL. PHYSICAL THERAPY WORKED WITH PT THIS AM. NEUROLOGY SIGNED OFF ON PT. CALL LIGHT WITHIN REACH. WILL CONTINUE TO MONITOR.
[2020-08-27 12:00] VITALS: BP 110/48
--- NOTE | 2020-08-27 13:46 | NUR ---
AFTER CHART REVIEW AND CONVERSATION WITH RN, PT DOES NOT CURRENTLY APPEAR TO HAVE SWALLOWING DEFICITS THAT WARRANT AN EVALUATION.
--- NOTE | 2020-08-27 14:46 | NUR ---
CM SPOKE TO THE PT TO DISCUSS CM ASSESSMENT. PT A&O, AND INDEPENDENT WITH ADL'S. PT RESIDES AT HOME ALONE. PT USES MEALS ON WHEELS. PT INFORMS THAT HE PAYS SOMEONE TO PROVIDE TRANSPORTAION, AND CLEAN HIS HOME. PT USE A CANE FOR MOBILITY, BUT ALSO OWNS A WALKER FROM A PREVIOUS KNEE INJURY. PT HAS PAST HX OF HH, BUT COULD NOT RECALL THE NAME. PT HAS O HX OF SNF. CM WILL REMAIN AVAILABLE TO ASSIST AND FOLLOW NEEDED.
[2020-08-27 16:00] VITALS: BP 152/71
--- NOTE | 2020-08-27 17:06 | NUR ---
NO NEW CHANGES. IV INTACT. HEART MONITOR ATTACHED. PT LYING IN BED. SAT UP IN CHAIR FOR A LITTLE WHILE THIS SHIFT. MEDS GIVEN PER MAR. CALL LIGHT WITH IN REACH. WILL CONTINUE TO MONITOR. POSSIBLE D/C TOMORROW.
[2020-08-27 20:00] VITALS: BP 166/56
[2020-08-28] VITALS: BP 153/74
[2020-08-28 04:00] VITALS: BP 145/65
[2020-08-28 05:36] LABS: GLYCOHEMOGLOBIN (HGB A1C) 5.3 % (4.8-5.6)
--- NOTE | 2020-08-28 07:38 | NUR ---
ASSUMED CARE OF PT AFTER REPORT AT 1930. PT A&OX4. FORGETFUL AT TIMES. VSS. PHYSICAL ASSESSMENT COMPLETED AND CHARTED. PT ON RA. PT TRACING SA/SB/1STD/BBB/PAC ON TELE. PT UPSTANDBY TO RESTROOM. NIH CHARTED. FALL PRECAUTIONS IN PLACE. CALL LIGHT WITHIN REACH.
[2020-08-28 08:00] VITALS: BP 146/72
[2020-08-28 16:00] VITALS: BP 156/55
--- NOTE | 2020-08-28 16:49 | NUR ---
RECEIVED REPORT AROUND 0715. ASSUMED CARE. VS AND ASSESSMENT CHARTED. IV FELL OUT THIS AM. PER DR ADAMS DOES NOT NEED AN IV. [facility] [place] PUT IN CHART. FLUIDS STOPPED. PT EATING AND DRINKING. PT SAT UP IN CHAIR FOR MOST OF DAY. MEDS GIVEN PER JUL. HOURLY ROUNDING PERFORMED. MED/SURG STATUS NOW. WILL BE TRANSFERRED TO [facility] THIS SHIFT. PT UP WITH A WALKER. POSSIBLE D/C TO REHAB TOMORROW. CALL LIGHT WITH IN REACH. WILL CONTINUE TO MONITOR.
[2020-08-28 22:00] VITALS: BP 162/103
--- NOTE | 2020-08-29 05:03 | NUR ---
PATIENT HAS SLEPT WELL THROUGHOUT THE NIGHT. VSS ON RA. MEDICATIONS GIVEN ORDERED AND CHARTED. PATIENT UP WITH ASSIST X 1. PATIENT INSTRUCTED TO USE CALL LIGHT WHEN NEEDING ASSISTANCE. FALL PRECAUTIONS IN PLACE AND HOURLY ROUNDS MADE. WILL CONTINUE WITH PLAN OF CARE AND NURSING TO MONITOR.
[2020-08-29 07:51] VITALS: BP 172/62
[2020-08-29 12:25] VITALS: BP 172/62
--- NOTE | 2020-08-29 12:39 | NUR ---
PT.TO DISCHARGE TODAY. HE SAID HE WOULD BE GOING TO HIS [place]. HIS [facility]PO[facility] HAS HH SET UP FOR DOWN THERE, HE STATED. NO OTHER NEEDS IDENTIFIED.
[2020-08-29 13:45] VITALS: BP 172/62
--- NOTE | 2020-08-29 13:46 | NUR ---
PATIENT GIVEN DISCHARGE INSTRUCTIONS AND MEDICATIONS REVIEWED. NO IV ACCESS. PATIENT DENIES PAIN/QUESTIONS/CONCERNS PRIOR TO DISCHARGE. PATIENT LEFT UNIT VIA W/C WITH PERSONAL BELONGINGS, ACCOMPANIED BY NURSING STAFF AT APPROX. 1336 TO MEET FRIEND AT ER ENTRANCE TO BE TAKEN HOME.
== END 2020-08-29 13:36 | disposition home health service (06) | DRG 69 ==
LOC: M.ERS 06:54 → M.ORTHSURG 08:53 → M.TBA-ER 08:53 → M.2W 11:16 → M.ORTHSURG 08-28 18:00
PROVIDERS: Emergency Medicine Emergency Medical Services; ADMIT Internal Medicine; ATTEND Internal Medicine
DX: G45.9 Transient cerebral ischemic attack, unspecified (principal); E03.9 Hypothyroidism, unspecified; I10 Essential (primary) hypertension; I25.10 Atherosclerotic heart disease of native coronary artery without angina pectoris; Z96.642 Presence of left artificial hip joint; Z20.822 Contact with and (suspected) exposure to COVID-19; Z90.49 Acquired absence of other specified parts of digestive tract; Z95.1 Presence of aortocoronary bypass graft; Z95.4 Presence of other heart-valve replacement; Z85.46 Personal history of malignant neoplasm of prostate; Z79.82 Long term (current) use of aspirin; Z79.899 Other long term (current) drug therapy; Z91.09 Other allergy status, other than to drugs and biological substances; Z87.891 Personal history of nicotine dependence; Z92.3 Personal history of irradiation